=== PATIENT | female | born 2000 | race Caucasian/White ===

== ENCOUNTER 2021-09-23 23:00 | Inpatient (IN) ==
[2021-09-23] MEDS ORDERED: Oxytocin in LR 20 UNITS/1,000 ML BAG IVPB ONE (23:33)
[2021-09-23] MEDS ORDERED: Lactated Ringers 1000 ml BAG 1,000 ML IV SCH (23:45)
[2021-09-23] MEDS ORDERED: Oxytocin in LR 20 UNITS/1,000 ML BAG IVPB SCH (23:45)
[2021-09-23] MEDS ORDERED: Dibucaine 1% OINT 28.35 GM TUBE PR PRN (23:52)
[2021-09-23] MEDS ORDERED: Witch Hazel PAD JAR TOPICAL PRN (23:52)
[2021-09-23] MEDS ORDERED: Glycerin ADULT 2.4 gm SUPP PR PRN (23:52)
[2021-09-23 23:54] LABS: ABS Lymphocytes 1.1 10^3/ul (1.0-4.8); ABS Monocytes 0.8 10^3/ul (0-0.8); ABS Neutrophils 17.4 10^3/ul (1.5-7.7); Hematocrit 37 % (35-47); Hemoglobin 12.4 g/dL (12.0-16.0); Lymphocyte % 5.6 %; Mean Corpuscular HGB Conc 33 g/dL (31-36); Mean Corpuscular Hemoglobin 28 pg (27-31); Mean Corpuscular Volume 84 fL (80-97); Mean Platelet Volume 8.5 fL (7.4-10.4); Platelet Count 230 10^3/uL (150-450); Red Blood Count 4.42 10^6 /uL (3.70-4.87); Red Cell Distribution Width 14 % (10-15); White Blood Count 19.3 10^3/uL (3.5-10.8)
[2021-09-23] MEDS ORDERED: Buffered Lidocaine 1% SYRIN 1 ml INTRADERM ONE (23:54)
[2021-09-23] MEDS ORDERED: Oxytocin 10 UNITS/ML 1 ML VIAL ONE (23:57)
[2021-09-24 00:28] LABS: Fibrinogen 311.1 mg/dL (110.8-404.3); INR 0.96 (0.86-1.15)
[2021-09-24] MEDS ORDERED: Ammonia Inhalant 1 EA AMP ONE (01:13)
[2021-09-24] MEDS ORDERED: Lidocaine 1% VIAL 10 MG/ML VIAL ONE (03:01)
[2021-09-24 03:09] LABS: Urine Benzodiazepine Screen None Detected (None Detect); Urine Cannabinoids Screen None Detected (None Detect); Urine Opiates Screen None Detected (None Detect)
[2021-09-24 06:44] LABS: ABS Monocytes 1.4 10^3/ul (0-0.8); ABS Neutrophils 12.3 10^3/ul (1.5-7.7); Eosinophil % 0.1 %; Hematocrit 31 % (35-47); Hemoglobin 10.4 g/dL (12.0-16.0); Mean Corpuscular HGB Conc 34 g/dL (31-36); Mean Corpuscular Hemoglobin 29 pg (27-31); Mean Corpuscular Volume 85 fL (80-97); Mean Platelet Volume 8.7 fL (7.4-10.4); Platelet Count 179 10^3/uL (150-450); Red Blood Count 3.62 10^6 /uL (3.70-4.87); Red Cell Distribution Width 14 % (10-15); White Blood Count 15.7 10^3/uL (3.5-10.8)
[2021-09-25 10:00] VITALS: BP 119/61
== END 2021-09-25 15:13 | disposition home or self-care (01) | DRG 560 ==
LOC: MCHOBOUT 23:00 → MCHOB 23:01
PROVIDERS: ADMIT Obstetrics & Gynecology; ATTEND Obstetrics & Gynecology